=== PATIENT | female | born 1995 | race Native Hawaiian/Other Pacific Islander ===

== ENCOUNTER 2017-07-03 16:06 | Emergency (ER) | payer OTHER ==
[~2017-07-03] VITALS: Ht 152.4 cm; Wt 68.2 kg
[~2017-07-03 16:06] MED LIST: BENTYL 10MG10 MG/CAP PO; ZITHROMAX 250M250 MG PO
[2017-07-03 16:22] VITALS: BP 140/73; PULSE 78; TEMP 97.5
== END 2017-07-03 16:44 | disposition home or self-care (01) ==
LOC: COL.ER 16:06
DX: S09.90XA Unspecified injury of head, initial encounter (principal); R40.2412 Glasgow coma scale score 13-15, at arrival to emergency department; K58.9 Irritable bowel syndrome, unspecified; V49.40XA Driver injured in collision with unspecified motor vehicles in traffic accident, initial encounter